=== PATIENT | male | born 1990 | race Two or more races ===

== ENCOUNTER 2024-05-10 12:28 | Emergency (ER) | payer MEDICAID, OTHER ==
[~2024-05-10] VITALS: Ht 167.6 cm; Wt 74.2 kg
[2024-05-10 13:54] VITALS: BP 131/81; PULSE 119; RESP 18; TEMP 98.7; O2SAT 100
[2024-05-10] MEDS ORDERED: AMOX875T3 PO (13:55)
[2024-05-10] MEDS ORDERED: IBUP-1456 PO (13:55)
== END 2024-05-10 14:04 | disposition home or self-care (01) ==
LOC: ER 12:28
DX: H66.91 Otitis media, unspecified, right ear (principal); Z79.899 Other long term (current) drug therapy

== ENCOUNTER 2024-05-24 08:09 | Emergency (ER) | payer MEDICAID ==
[~2024-05-24] VITALS: Ht 172.7 cm; Wt 82.7 kg
[~2024-05-24 08:09] MED LIST: AMOX875T3 PO; IBUP-1456 PO
[2024-05-24 08:38] VITALS: BP 135/75; PULSE 98; RESP 17; TEMP 97.9; O2SAT 99
[2024-05-24] MEDS ORDERED: AUG875T PO (08:46)
== END 2024-05-24 09:00 | disposition home or self-care (01) ==
LOC: ER 08:09
DX: H66.91 Otitis media, unspecified, right ear (principal)